=== PATIENT | female | born 1980 | race African-American/Black ===

== ENCOUNTER 2022-04-19 17:34 | Emergency (ER) | payer MEDICAID, OTHER ==
[~2022-04-19] VITALS: Ht 162.6 cm; Wt 50.0 kg
[~2022-04-19 17:34] MED LIST: KEPP500 MT
[2022-04-19] MEDS ORDERED: PANTOPRAZOLE 40MG DR TABLET PO ONE (19:15)
[2022-04-19] MEDS ORDERED: ONDANSETRON 4MG ODT PO ONE (19:15)
[2022-04-19 22:57] LABS: CHLORIDE 104 mEq/L (98-107)
[2022-04-19 23:00] LABS: BASOPHILS % 0.7 % (0.0-2.0); EOSINOPHILS % 1.9 % (0.0-5.0); HEMATOCRIT. 32.3 % (36.0-48.0); LYMPHOCYTES % 26.8 % (20.0-50.0); MEAN CORPUSCULAR HEMOGLOBIN 21.6 pg (28.0-32.0); MEAN CORPUSCULAR VOLUME 69.7 fL (81.0-99.0); MEAN PLATELET VOLUME 6.3 fl (7.4-10.4); NEUTROPHILS % 64.6 % (40.0-76.0); PLATELET 484 x1000/uL (130-400); RED BLOOD CELL COUNT 4.63 mill/uL (4.2-5.4); RED CELL DISTRIBUTION WIDTH 19.2 % (11.6-14.6)
[2022-04-19 23:06] LABS: ETHANOL BLOOD 43 mg/dL
[2022-04-19 23:15] LABS: *BARBITURATES SCREEN URINE NEGATIVE (NEGATIVE); *BENZODIAZEPINES SCREEN URINE NEGATIVE (NEGATIVE); METHADONE URINE SCREEN NEGATIVE (NEGATIVE); OPIATES URINE SCREEN NEGATIVE (NEGATIVE)
[2022-04-19 23:18] LABS: HCG SCREEN NEGATIVE
[2022-04-19 23:23] LABS: CLARITY URINE CLEAR (CLEAR); COLOR URINE YELLOW (YELLOW); KETONES URINE NEGATIVE (NEGATIVE); LEUKOCYTE ESTERASE URINE NEGATIVE (NEGATIVE); NITRITE URINE NEGATIVE (NEGATIVE); OCCULT BLOOD URINE NEGATIVE (NEGATIVE); PROTEIN URINE NEGATIVE (NEGATIVE); UROBILINOGEN URINE 0.2 E.U./dL (0.2-1.0)
[2022-04-19 23:25] LABS: PLATELET ESTIMATE INCREASED
[2022-04-19 23:32] LABS: *AMPHETAMINES SCREEN URINE PRESUMTIVE POSITIVE (NEGATIVE); *COCAINE SCREEN URINE PRESUMTIVE POSITIVE (NEGATIVE); CANNABINOID URINE SCREEN PRESUMTIVE POSITIVE (NEGATIVE); PHENCYCLIDINE URINE SCREEN PRESUMTIVE POSITIVE (NEGATIVE)
[2022-04-20 04:00] VITALS: BP 118/62
== END 2022-04-20 04:00 | disposition home or self-care (01) ==
LOC: ER 17:34
DX: F10.229 Alcohol dependence with intoxication, unspecified (principal); Y90.2 Blood alcohol level of 40-59 mg/100 ml; F91.8 Other conduct disorders; R63.8 Other symptoms and signs concerning food and fluid intake; R05.9 Cough, unspecified
CPT/HCPCS: 36415; 80053; 80305; 80307; 80320; 80329; 81003; 84703; 85025; 99285; Q0162; G0480